=== PATIENT | female | born 1970 | race Caucasian/White ===

== ENCOUNTER 2020-12-16 10:20 | Emergency (ER) | payer SELFPAY ==
[~2020-12-16] VITALS: Ht 167.6 cm; Wt 95.5 kg
[2020-12-16 10:21] VITALS: BP 156/106
== END 2020-12-16 11:38 | disposition left against medical advice (07) ==
LOC: EMS 10:23
DX: R50.9 Fever, unspecified (principal); Z53.21 Procedure and treatment not carried out due to patient leaving prior to being seen by health care provider